=== PATIENT | male | born 1955 | race Caucasian/White ===

== ENCOUNTER 2020-07-09 12:44 | Emergency (ER) | payer OTHER ==
[~2020-07-09] VITALS: Ht 180 cm; Wt 113.0 kg
[2020-07-09] MEDS ORDERED: SULF1TAB35 (13:06)
--- NOTE | 2020-07-09 13:14 | ED Integumentary General ---
General Chief Complaint: Skin/Wound Problems Stated Complaint: ABCESS [place] INJ Nursing Triage Note: ARRIVED VIA AMB TO ROOM 05. WAS SEEN AT A ER IN [place] YESTERDAY AND A ABSCESS ON HIS BUTTOCK WAS DRAINED. WAS TO GO TO THE [place] FOR IV MEDICATION BUT THEY DID NOT HAVE IT AND WAS SENT HERE. Source: patient Exam Limitations: no limitations History of Present Illness Date Seen by Provider: Jul 09, 2020 Time Seen by Provider: 13:11 Initial Comments To ER with an abscess to the left buttock. This began Wednesday. He was seen at a hospital in [facility] yesterday and had incision and drainage done with a prescription for Bactrim. He was given an injection of antibiotics but not sure what. He denies any systemic symptoms such as nausea vomiting fevers or chills. He followed with the [facility] outreach clinic in [place] as he typically does and they referred him to the emergency room for more IV antibiotics but he is not sure what kind. Timing/Duration: constant Severity: moderate Associated Symptoms: denies symptoms Allergies and Home Medications Allergies Coded Allergies: No Known Drug Allergies (Unverified , 07/09/20) Patient Home Medication List Home Medication List Reviewed: Yes Review of Systems Review of Systems Constitutional: see HPI; No chills, No fever EENTM: see HPI Respiratory: no symptoms reported Cardiovascular: no symptoms reported Genitourinary: no symptoms reported Musculoskeletal: no symptoms reported Skin: see HPI Psychiatric/Neurological: No Symptoms Reported Endocrine: No Symptoms Reported Past Xwfruli-Rjsurr-Vszmsn Hx Patient Social History Alcohol Use: Denies Use Recreational Drug Use: No Smoking Status: Never a Smoker Recent Foreign Travel: No Contact w/Someone Who Travel: No Recent Infectious Disease Expo: No Recent Hopitalizations: No Past Medical History Surgeries: Yes Ear Surgery, Tonsillectomy Respiratory: No Cardiac: Yes High Cholesterol, Hypertension Gastrointestinal: No Musculoskeletal: No Endocrine: No HEENT: No Cancer: No Integumentary: No Physical Exam Vital Signs Vital Signs - First Documented 07/09/20 13:00 Temp 36.3 Pulse 99 Resp 16 B/P (MAP) 135/65 (88) Pulse Ox 97 O2 Delivery Room Air Capillary Refill : Less Than 3 Seconds General Appearance: WD/WN, no apparent distress, other (Alert and oriented very pleasant) Neck: non-tender, full range of motion Respiratory: no respiratory distress, no accessory muscle use Neurologic/Psychiatric: alert, normal mood/affect, oriented x 3 Skin: normal color, warm/dry Skin Problem Location: other (Abscess to the left buttock. This measures 8 cm in diameter. Bedside ultrasound reveals a small amount of fluid within this and I do not see any drainage. As such I anesthetized this locally with 3 mL of 1% lidocaine with epinephrine. A small incision was made with an 11 blade scalpel. Loculations were broken up. Small amount of purulent material expressed. Culture collected and sent to lab.) Skin Problem Character: abscess Progress/Results/Core Measures Results/Orders My Orders Orders - JENNY KESSLER APRN Wound Culture (07/09/20 13:11) Vital Signs/I&O 07/09/20 13:00 Temp 36.3 Pulse 99 Resp 16 B/P (MAP) 135/65 (88) Pulse Ox 97 O2 Delivery Room Air Blood Pressure Mean: 88 Departure Communication (Admissions) Spoke with [facility], they put him on Bactrim and gave him Rocephin. They told him to follow-up with primary care as he may need an additional Rocephin injection. I will give him some Rocephin here and have him continue the Bactrim. Impression Primary Impression: Abscess Disposition: 01 HOME, SELF-CARE Condition: Stable Departure-Patient Inst. Decision time for Depature: 13:18 Referrals: NO,LOCAL PHYSICIAN (PCP/Family) Primary Care Physician Patient Instructions: Abscess Incision and Drainage (DC) Add. Discharge Instructions: 1. The Bactrim antibiotic that you are on should be sufficient to cover this infection. We will have the results of the culture within about 48 hours. If this indicates a bacteria that is resistant to Bactrim then we will call you with a different antibiotic. Warm compresses to the buttock, return to ER for any fevers chills or worsening symptoms. All discharge instructions reviewed with patient and/or family. Voiced understanding. JENNY KESSLER APRN Jul 09, 2020 13:14
[2020-07-09] MEDS ORDERED: ACHD5005 PO (13:19)
[2020-07-09] MEDS ORDERED: LIDOCAINE 1% INJ 20 ML 20 ML VIAL INJ ONE (13:30)
[2020-07-09] MEDS ORDERED: cefTRIAXone 1,000 MG/2.86 ml vial (IM ONLY) IM SCH (13:30)
[2020-07-09 13:50] VITALS: BP 135/65
--- NOTE | 2020-07-11 14:52 | NUR ---
REPORT FAXED TO ED FROM [facility] RESULTS GIVEN TO David KESSLER APRN
--- NOTE | 2020-07-11 15:01 | NUR ---
ALREADY ON BACTRIM
== END 2020-07-09 13:50 | disposition home or self-care (01) ==
LOC: ER 12:47
DX: L02.31 Cutaneous abscess of buttock (principal)
CPT/HCPCS: 45020; 87070; 87077; 87205

== ENCOUNTER 2020-09-02 16:15 | Emergency (ER) | payer OTHER ==
[~2020-09-02] VITALS: Ht 180.3 cm; Wt 113.4 kg
[~2020-09-02 16:15] MED LIST: ACHD5005 PO; SULF1TAB35
[2020-09-02 16:23] VITALS: BP 179/72
[2020-09-02] MEDS ORDERED: DOXY100T2 PO (16:37)
--- NOTE | 2020-09-02 16:37 | ED Integumentary General ---
General Chief Complaint: Skin/Wound Problems Stated Complaint: CYST ON LOWER BACK/BUTTOCK Nursing Triage Note: PT AMB TO RM 6 WITH COMPLAINT OF CYST ON LEFT BUTTOCK. STATES STARTED OVER THE WEEKED. Source: patient Exam Limitations: no limitations History of Present Illness Date Seen by Provider: Sep 02, 2020 Time Seen by Provider: 16:24 Initial Comments To ER with reports of an abscess to the left buttock. Present since the weekend. No fevers or chills. Timing/Duration: just prior to arrival, getting worse Severity: moderate Possible Cause: no cause identified Associated Symptoms: denies symptoms Allergies and Home Medications Allergies Coded Allergies: No Known Drug Allergies (Unverified , 07/09/20) Home Medications Doxycycline Hyclate 100 Mg Tablet, 100 MG PO BID Prescribed by: JENNY KESSLER on 09/02/20 1637 Hydrocodone/Acetaminophen 1 Each Tablet, 1 EACH PO Q4H PRN for PAIN-MODERATE (5- 7) Prescribed by: JENNY KESSLER on 07/09/20 1320 Patient Home Medication List Home Medication List Reviewed: Yes Review of Systems Review of Systems Constitutional: see HPI EENTM: see HPI Respiratory: no symptoms reported Cardiovascular: no symptoms reported Genitourinary: no symptoms reported Musculoskeletal: no symptoms reported Skin: see HPI Psychiatric/Neurological: No Symptoms Reported Endocrine: No Symptoms Reported Hematologic/Lymphatic: No Symptoms Reported Past Tmczamz-Euwiba-Ghepyu Hx Patient Social History Alcohol Use: Occasionally Uses Smoking Status: Never a Smoker Recent Infectious Disease Expo: No Recent Hopitalizations: No Immunizations Up To Date Tetanus Booster (TDap): Unknown PED Vaccines UTD: Yes Past Medical History Surgeries: Yes Ear Surgery, Tonsillectomy Respiratory: No Cardiac: Yes High Cholesterol, Hypertension Gastrointestinal: No Musculoskeletal: No Endocrine: No HEENT: No Cancer: No Integumentary: No Physical Exam Vital Signs Vital Signs - First Documented 09/02/20 16:23 Temp 36.5 Pulse 89 Resp 20 B/P (MAP) 179/72 (107) Pulse Ox 98 O2 Delivery Room Air Capillary Refill : Less Than 3 Seconds General Appearance: WD/WN, no apparent distress HEENT: PERRL/EOMI, normal ENT inspection Neck: non-tender, full range of motion Respiratory: no respiratory distress, no accessory muscle use Gastrointestinal: normal bowel sounds, non tender, soft Neurologic/Psychiatric: alert, normal mood/affect, oriented x 3 Skin: normal color, warm/dry Skin Problem Location: torso (Superior aspect of the left buttock. Not to the gluteal cleft this is not a pilonidal abscess.) Skin Problem Character: abscess Procedures/Interventions I&D : Blade Size: 11 Progress Cleaned with chlorhexidine swab then anesthetized locally with 1 mL of 1% lidocaine without epinephrine and then a T-shaped incision was made using 11 blade scalpel. Progress/Results/Core Measures Results/Orders My Orders Orders - JENNY KESSLER APRN Clindamycin Injection (Cleocin Injection (09/02/20 16:45) Lidocaine 1% Inj 20 Ml (Xylocaine 1% Inj (09/02/20 16:45) Wound Culture (09/02/20 16:31) Medications Given in ED Current Medications Medications Dose Ordered Sig/Meera Route Start Time Stop Time Status Last Admin Dose Admin Lidocaine HCl 2 ml ONCE ONCE INJ 09/02/20 16:45 09/02/20 16:47 DC 09/02/20 16:37 2 ML Vital Signs/I&O 09/02/20 16:23 Temp 36.5 Pulse 89 Resp 20 B/P (MAP) 179/72 (107) Pulse Ox 98 O2 Delivery Room Air Blood Pressure Mean: 107 Departure Impression Primary Impression: Abscess Disposition: 01 HOME, SELF-CARE Condition: Stable Departure-Patient Inst. Decision time for Depature: 16:36 Referrals: NO,LOCAL PHYSICIAN (PCP/Family) Primary Care Physician Patient Instructions: Skin Abscess Add. Discharge Instructions: 1. Warm compress to the area return to ER for any concerns. Medication as directed. All discharge instructions reviewed with patient and/or family. Voiced understanding. Scripts Doxycycline Hyclate (Doxycycline Hyclate) 100 Mg Tablet 100 MG PO BID, #14 TAB 0 Refills Prov: JENNY KESSLER APRN 09/02/20 JENNY KESSLER APRN Sep 02, 2020 16:37
[2020-09-02] MEDS ORDERED: LIDOCAINE 1% INJ 20 ML 20 ML VIAL INJ ONE (16:45)
[2020-09-02] MEDS ORDERED: CLINDAMYCIN 300 MG/2ML (CLEOCIN) VIAL IM SCH (16:45)
== END 2020-09-02 16:56 | disposition home or self-care (01) ==
LOC: EDUNIT# 16:15 → ER 16:19
DX: L02.31 Cutaneous abscess of buttock (principal)
CPT/HCPCS: 87070; 87205; 99284

== ENCOUNTER 2020-12-20 20:36 | Emergency (ER) | payer OTHER ==
[~2020-12-20 20:36] MED LIST changes: +DOXY100T2 PO
[2020-12-20 20:45] VITALS: BP 141/87
[2020-12-20] MEDS ORDERED: CLINDAMYCIN 300 MG/2ML (CLEOCIN) VIAL IM SCH (21:00)
[2020-12-20] MEDS ORDERED: ACHD5005 PO (21:09)
[2020-12-20] MEDS ORDERED: CLIN300C12 PO (21:09)
--- NOTE | 2020-12-20 21:09 | ED Integumentary General ---
General Chief Complaint: Skin/Wound Problems Stated Complaint: R BUTTOCK CYST Source: patient Exam Limitations: no limitations History of Present Illness Date Seen by Provider: December 20, 2020 Time Seen by Provider: 20:50 Initial Comments To ER with redness pain and swelling over the right ischium for about 2 weeks. No fevers or chills. Has a history of recurrent buttock abscesses. He is not diabetic. 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 Timing/Duration: getting worse Severity: moderate Associated Symptoms: denies symptoms Allergies and Home Medications Allergies Coded Allergies: No Known Drug Allergies (Unverified , 07/09/20) Home Medications Doxycycline Hyclate 100 Mg Tablet, 100 MG PO BID Prescribed by: JENNY KESSLER on 09/02/20 1637 Hydrocodone/Acetaminophen 1 Each Tablet, 1 EACH PO Q4H PRN for PAIN-MODERATE (5- 7) Prescribed by: JENNY KESSLER on 07/09/20 1320 Patient Home Medication List Home Medication List Reviewed: Yes Review of Systems Review of Systems Constitutional: see HPI EENTM: see HPI Respiratory: no symptoms reported Cardiovascular: no symptoms reported Genitourinary: no symptoms reported Musculoskeletal: see HPI Skin: no symptoms reported Psychiatric/Neurological: No Symptoms Reported Endocrine: No Symptoms Reported Hematologic/Lymphatic: No Symptoms Reported Past Fukymer-Dkieuq-Upkcrh Hx Patient Social History Recent Hopitalizations: No Immunizations Up To Date Tetanus Booster (TDap): Unknown PED Vaccines UTD: Yes Past Medical History Surgeries: Yes Ear Surgery, Tonsillectomy Respiratory: No Cardiac: Yes High Cholesterol, Hypertension Gastrointestinal: No Musculoskeletal: No Endocrine: No HEENT: No Cancer: No Integumentary: No Physical Exam Vital Signs Capillary Refill : General Appearance: WD/WN, no apparent distress Respiratory: no respiratory distress, no accessory muscle use Skin Problem Location: other (Right buttock ischium) Skin Problem Character: abscess, other (Bedside ultrasound which showed cob blestoning of the tissue, small collection of fluid. 2 incisions were made using 11 blade scalpel after anesthetizing with a total of 2 mL of lidocaine without epinephrine. Only the more medial incision expressed any purulent material. Culture collected and sent to lab. Covered with gauze.) Progress/Results/Core Measures Results/Orders My Orders Orders - JENNY KESSLER CUSHION PADDER Rx-Hydrocodone/Apap 5-325 Mg (Rx-Vicodin (12/20/20 21:00) Clindamycin Injection (Cleocin Injection (12/20/20 21:00) Wound Culture (12/20/20 20:49) Medications Given in ED Current Medications Medications Dose Ordered Sig/Meera Route Start Time Stop Time Status Last Admin Dose Admin Acetaminophen/ Hydrocodone Bitart 1 ea Q4H PRN PO 12/20/20 21:00 12/20/20 20:56 1 EA Departure Impression Primary Impression: Abscess Disposition: 01 HOME, SELF-CARE Condition: Stable Departure-Patient Inst. Decision time for Depature: 21:06 Referrals: NO,LOCAL PHYSICIAN (PCP/Family) Primary Care Physician Patient Instructions: Abscess Incision and Drainage Add. Discharge Instructions: . Warm compresses to the area. Antibiotics and pain medication as directed. All discharge instructions reviewed with patient and/or family. Voiced understanding. Scripts Hydrocodone/Acetaminophen (Hydrocodone-Acetamin 5-325 mg) 1 Each Tablet 1 TAB PO Q4H PRN for PAIN-MODERATE (5-7), #10 TAB Prov: JENNY KESSLER APRN 12/20/20 Clindamycin HCl (Clindamycin HCl) 300 Mg Capsule 300 MG PO TID, #21 CAP Prov: JENNY KESSLER APRN 12/20/20 JENNY KESSLER APRN December 20, 2020 21:09
== END 2020-12-20 21:14 | disposition home or self-care (01) ==
LOC: EDUNIT# 20:36 → ER 20:38
DX: L02.31 Cutaneous abscess of buttock (principal); I10 Essential (primary) hypertension
CPT/HCPCS: 10060; 87070; 87077; 87186; 87205